=== PATIENT | male | born 1990 | race Caucasian/White ===

== ENCOUNTER 2020-07-12 03:23 | Emergency (ER) | payer BC ==
[~2020-07-12] VITALS: Ht 177.8 cm; Wt 107.0 kg
[~2020-07-12 03:23] MED LIST: EPIPEN
[2020-07-12] MEDS ORDERED: BACITRACIN ZINC OINT UDPKT TOP ONE (04:00)
[2020-07-12] MEDS ORDERED: KETOROLAC 60MG/2ML VIAL IM ONE (04:00)
[2020-07-12] MEDS ORDERED: NAPR-681 MT (04:37)
[2020-07-12] MEDS ORDERED: MUPI15CR11 TP (04:37)
[2020-07-12] MEDS ORDERED: AMOX-424 MT (04:39)
[2020-07-12 04:45] VITALS: BP 128/94
[2020-07-12] MEDS ORDERED: MUPIROCIN 2% OINT 22GM TOP SCH (04:45)
== END 2020-07-12 04:59 | disposition home or self-care (01) ==
LOC: ER 03:23
DX: S51.852A Open bite of left forearm, initial encounter (principal); S21.159A Open bite of unspecified front wall of thorax without penetration into thoracic cavity, initial encounter; F17.200 Nicotine dependence, unspecified, uncomplicated; Z91.018 Allergy to other foods; Z88.1 Allergy status to other antibiotic agents; W50.3XXA Accidental bite by another person, initial encounter; Y93.89 Activity, other specified; Y92.89 Other specified places as the place of occurrence of the external cause; Y99.8 Other external cause status
CPT/HCPCS: 73610; 96372; 99283; A4217; J1885

== ENCOUNTER 2020-07-14 01:39 | Emergency (ER) | payer BC ==
[~2020-07-14] VITALS: Ht 177.8 cm; Wt 105.0 kg
[~2020-07-14 01:39] MED LIST changes: +AMOX-424 MT; +MUPI15CR11 TP; +NAPR-681 MT
[2020-07-14] MEDS ORDERED: MUPIROCIN 2% OINT 22GM NS STA (03:34)
[2020-07-14] MEDS ORDERED: HYDROCODONE/ACETAMINOPHEN 10/325MG TABLET PO ONE (03:45)
[2020-07-14 03:47] VITALS: BP 136/86
[2020-07-14] MEDS ORDERED: MUPIROCIN 2% OINT 22GM NS SCH (09:00)
== END 2020-07-14 03:50 | disposition home or self-care (01) ==
LOC: ER 01:39
DX: S91.051A Open bite, right ankle, initial encounter (principal); S93.401A Sprain of unspecified ligament of right ankle, initial encounter; E11.9 Type 2 diabetes mellitus without complications; B20 Human immunodeficiency virus [HIV] disease; Y04.1XXA Assault by human bite, initial encounter; Y93.89 Activity, other specified; Y92.9 Unspecified place or not applicable; Z88.3 Allergy status to other anti-infective agents; Z91.018 Allergy to other foods; Z98.890 Other specified postprocedural states
CPT/HCPCS: 73610; 99283

== ENCOUNTER 2022-12-16 23:04 | Emergency (ER) | payer BC ==
[~2022-12-16] VITALS: Ht 177.8 cm; Wt 91.0 kg
[2022-12-16 23:13] VITALS: BP 148/101; PULSE 101; RESP 16; TEMP 97.9; O2SAT 99
[2022-12-16] MEDS ORDERED: ACETAMINOPHEN 500MG TABLET PO STA (23:18)
[2022-12-16] MEDS ORDERED: TETANUS, DIPHTHERIA, PERTUSSIS VAC/PF 0.5ML (>10YR OLD) IM ONE (23:30)
[2022-12-16] MEDS ORDERED: SODIUM CHLORIDE 0.9% 1,000 ML IV ONE (23:30)
[2022-12-16] MEDS ORDERED: BACITRACIN ZINC OINT UDPKT TOP ONE (23:30)
== END 2022-12-16 23:31 | disposition left against medical advice (07) ==
LOC: ER 23:18
DX: S41.011A Laceration without foreign body of right shoulder, initial encounter (principal); E11.9 Type 2 diabetes mellitus without complications; Z90.49 Acquired absence of other specified parts of digestive tract; Z91.018 Allergy to other foods; Z88.8 Allergy status to other drugs, medicaments and biological substances; W19.XXXA Unspecified fall, initial encounter; Y93.89 Activity, other specified; Y92.89 Other specified places as the place of occurrence of the external cause; Y99.8 Other external cause status
CPT/HCPCS: 99283; J7030